=== PATIENT | female | born 1955 | race Caucasian/White ===

== ENCOUNTER 2024-03-31 17:25 | Emergency (ER) | payer MEDICARE ==
[~2024-03-31] VITALS: Ht 172.7 cm; Wt 54.1 kg
[2024-03-31] MEDS: ketorolac trometh 15mg/ml vial 15 MG/ML ML IM ONE (19:43)
[2024-03-31] MEDS: cyclobenzaprine 10mg tablet PO ONE (19:43)
[2024-03-31] MEDS: buprenorphine/naloxone 8MG-2MG SUBlingual film SL SCH (20:09)
[2024-03-31 20:39] LABS: BILIRUBIN,URINE NEGATIVE (Neg); CLARITY,URINE SLIGHTLY CLOUDY (Clear); COLOR,URINE YELLOW (Yellow); GLUCOSE, URINE NEGATIVE (Neg); KETONES,URINE NEGATIVE (Neg); LEUKOCYTE ESTERASE ,URINE MODERATE (Neg); NITRITES, URINE POSITIVE (Neg); OCCULT BLOOD,URINE NEGATIVE (Neg); PH,URINE 6.5 (4.8-8.0); PROTEIN,URINE NEGATIVE (Neg); UROBILINOGEN,URINE 0.2 E.U/dL (0.2-1.0)
[2024-03-31 20:53] LABS: UA COLLECTION TYPE CLN CATCH MIDSTREAM
[2024-03-31 20:55] LABS: BACTERIA,URINE 3+ /HPF (Neg); RBC,URINE 0-2 /HPF (0-2); RENAL CELLS, URINE FEW /HPF; SQUAMOUS EPITHELIAL CELL,UR FEW /LPF (FEW); TRANSITIONAL EPI CELLS,URINE FEW /HPF; WBC,URINE 20-30 /HPF (0-4)
[2024-03-31] MEDS ORDERED: LIDO700A32 TOP (21:21)
[2024-03-31] MEDS ORDERED: CYCL-1 PO (21:21)
[2024-03-31] MEDS ORDERED: CEPH-585 PO (21:21)
[2024-03-31] MEDS: CefTRIAXone 1000mg IM Kit (w/lidocaine diluent) IM ONE (21:39)
[2024-03-31 21:52] VITALS: BP 135/67; PULSE 79; RESP 16; TEMP 97.9; O2SAT 96
== END 2024-03-31 22:08 | disposition home or self-care (01) ==
LOC: ER 17:26
DX: N39.0 Urinary tract infection, site not specified (principal); G89.29 Other chronic pain; M54.50 Low back pain, unspecified
CPT/HCPCS: 81001; 87077; 87088; 87186; 96372; 99284; J0696; J1885

== ENCOUNTER 2024-05-23 09:11 | Emergency (ER) | payer MEDICARE ==
[~2024-05-23] VITALS: Ht 170.2 cm; Wt 78.4 kg
[~2024-05-23 09:11] MED LIST: CYCL-1 PO; LIDO700A32 TOP
[2024-05-23 09:21] VITALS: TEMP 98.2
[2024-05-23] MEDS: buprenorphine/naloxone 8MG-2MG SUBlingual film SL ONE (09:47)
[2024-05-23] MEDS ORDERED: BUPR1FIL3 SL (10:06)
[2024-05-23 10:26] VITALS: BP 128/70; PULSE 58; RESP 18; O2SAT 98
== END 2024-05-23 10:28 | disposition home or self-care (01) ==
LOC: ER 09:11
DX: M54.50 Low back pain, unspecified (principal); Z79.899 Other long term (current) drug therapy
CPT/HCPCS: 99283

== ENCOUNTER 2024-06-10 08:40 | Emergency (ER) | payer MEDICARE, MEDICAID ==
[~2024-06-10] VITALS: Ht 172.7 cm; Wt 56.0 kg
[2024-06-10 08:49] VITALS: BP 132/69; PULSE 64; RESP 16; TEMP 98.3; O2SAT 100
[2024-06-10] MEDS ORDERED: BUPR1FIL7 SL (09:44)
== END 2024-06-10 10:33 | disposition home or self-care (01) ==
LOC: ER 08:41
DX: G89.29 Other chronic pain (principal); M54.59 Other low back pain; Z79.899 Other long term (current) drug therapy
CPT/HCPCS: 99284

== ENCOUNTER 2024-07-17 19:51 | Emergency (ER) | payer MEDICARE, MEDICAID ==
[~2024-07-17] VITALS: Ht 172.7 cm; Wt 56.4 kg
[~2024-07-17 19:51] MED LIST changes: +BUPR1FIL7 SL
[2024-07-17 20:39] VITALS: BP 148/88; PULSE 88; RESP 16; O2SAT 99
[2024-07-17] MEDS ORDERED: LOSA100T58 PO ×2 (20:42→21:29)
[2024-07-17] MEDS ORDERED: ALBU18HF2 PO ×2 (20:42→21:29)
[2024-07-17] MEDS ORDERED: IBUP-1986 PO ×2 (20:42→21:29)
[2024-07-17] MEDS ORDERED: HYDR50CA5 PO (20:42)
[2024-07-17] MEDS ORDERED: LEVO112T5 PO ×2 (20:42→21:29)
[2024-07-17] MEDS ORDERED: ATOR10TA70 PO ×2 (20:42→21:29)
[2024-07-17] MEDS ORDERED: BUPR1FIL SL ×2 (20:42→21:29)
[2024-07-17 21:33] VITALS: TEMP 98.6
== END 2024-07-17 21:36 | disposition home or self-care (01) ==
LOC: ER 19:51
DX: I10 Essential (primary) hypertension (principal); Z76.0 Encounter for issue of repeat prescription; Z79.1 Long term (current) use of non-steroidal anti-inflammatories (NSAID); Z79.899 Other long term (current) drug therapy
CPT/HCPCS: 99281

== ENCOUNTER 2024-10-06 18:14 | Emergency (ER) | payer MEDICARE, MEDICAID, OTHER ==
[~2024-10-06] VITALS: Ht 172.7 cm; Wt 58.2 kg
[~2024-10-06 18:14] MED LIST changes: +ALBU18HF2 PO; +ATOR10TA70 PO; +BUPR1FIL SL; -BUPR1FIL7 SL; -CYCL-1 PO; +HYDR50CA5 PO; +IBUP-1986 PO; +LEVO112T5 PO; -LIDO700A32 TOP; +LOSA100T58 PO
[2024-10-06 18:30] VITALS: BP 144/47; PULSE 67; RESP 18; TEMP 97.8; O2SAT 97
[2024-10-06] MEDS ORDERED: BUPR1FIL7 SL (19:01)
[2024-10-06] MEDS ORDERED: AMLO10TA13 PO ×2 (19:01→20:22)
[2024-10-06] MEDS ORDERED: LIDO700A47 TOP ×2 (19:01→20:22)
[2024-10-06] MEDS ORDERED: LOSA-418 PO ×2 (19:01→20:22)
[2024-10-06] MEDS ORDERED: ONDA-245 PO ×2 (19:01→20:22)
[2024-10-06] MEDS ORDERED: OMEP20TA23 PO ×2 (19:01→20:22)
[2024-10-06] MEDS ORDERED: HYDR50CA5 PO (20:22)
[2024-10-06] MEDS ORDERED: LEVO112T5 PO (20:25)
[2024-10-06] MEDS ORDERED: ALBU18HF2 PO (20:27)
== END 2024-10-06 20:37 | disposition home or self-care (01) ==
LOC: ER 18:15
DX: Z00.00 Encounter for general adult medical examination without abnormal findings (principal); Z76.0 Encounter for issue of repeat prescription
CPT/HCPCS: 99281

== ENCOUNTER 2024-10-25 19:22 | Emergency (ER) | payer MEDICARE, MEDICAID ==
[~2024-10-25] VITALS: Ht 172.7 cm; Wt 57.8 kg
[~2024-10-25 19:22] MED LIST changes: +AMLO10TA13 PO; +BUPR1FIL7 SL; +LIDO700A47 TOP; +LOSA-418 PO; +OMEP20TA23 PO; +ONDA-245 PO
[2024-10-25 19:48] VITALS: BP 119/71; PULSE 95; RESP 18; TEMP 98.3; O2SAT 98
== END 2024-10-25 20:09 | disposition home or self-care (01) ==
LOC: ER 19:23
DX: F11.90 Opioid use, unspecified, uncomplicated (principal); Z76.0 Encounter for issue of repeat prescription; Z79.1 Long term (current) use of non-steroidal anti-inflammatories (NSAID); Z79.899 Other long term (current) drug therapy
CPT/HCPCS: 99281

== ENCOUNTER 2024-11-16 18:32 | Emergency (ER) | payer MEDICARE, MEDICAID ==
[~2024-11-16] VITALS: Ht 177.8 cm; Wt 51.5 kg
[2024-11-16 18:34] VITALS: BP 105/65; PULSE 69; RESP 15; TEMP 97.6; O2SAT 98
[2024-11-16] MEDS ORDERED: PERM59LI8 TOP (19:10)
--- NOTE | 2024-11-16 19:11 | Physician Documentation ---
History of Present Illness General Chief Complaint: Bite-insect Stated Complaint: LICE Time Seen by MD: 18:54 Primary Medical Doctor: NO PMD History of Present Illness Initial Comments 69-year-old female presents to the emergency department with complaints of head lice. Requesting medication treatment. Denies other chief complaints. Medication Reconciliation Allergies: Coded Allergies: No Known Allergies (Unverified , 11/16/24) Scheduled Amlodipine Besylate (Amlodipine Besylate), 1 TAB PO DAILY Atorvastatin Calcium (Atorvastatin Calcium), 1 TAB PO DAILY Buprenorphine HCl/Naloxone HCl (Buprenor-Nalox 12-3 mg Sl Film), 1 STRIP SL DAILY Buprenorphine HCl/Naloxone HCl (Suboxone 12 mg-3 mg Sl Film), 1 STRIP SL DAILY, (Reported) Ibuprofen (Ibuprofen), 1 TAB PO TID Levothyroxine Sodium (Levothyroxine Sodium), 1 TAB PO DAILY Lidocaine (Lidocaine), 1 PATCH TOP DAILY Losartan Potassium (Losartan Potassium), 1 TAB PO DAILY Losartan Potassium (Cozaar), 1 TAB PO DAILY Omeprazole Magnesium (Prilosec Otc), 20 TAB PO DAILY Ondansetron 8mg ODT (Ondansetron Odt), 1 TAB PO Q8H Scheduled PRN Albuterol Sulfate (Ventolin Hfa), 2 PUFFS PO Q4H PRN for cough & congestion Hydroxyzine Pamoate (Hydroxyzine Pamoate), 1 CAP PO TID PRN for anxiety Past Medical History Past Medical History: No Pertinent History Review of Systems All Other Systems at this time: Reviewed and Negative Integ: Reports: itching Integumentary Scalp Physical Exam Physical Exam Vital Signs: RN Vital Signs have been reviewed: Yes, Temperature: 97.6, Source: Temporal, Heart Rate: 69, Respiratory Rate: 15, BP: 105/65, Pulse Oximetry: 98, Weight: 51.500 General Appearance: alert, WD/WN, mild distress Head + Nits, Scalp infestation Pupils/EOM/Fundus: PERRLA Neck: non-tender Respiratory: no respiratory distress Cardiovascular: regular rate, rhythm Psychiatric: normal mood/affect Skin: normal color, other (See above) Progress Results/Orders Results/Orders Completed Orders - NICKOLAS PRESSLEY Permethrin Hair Rinse (Lice Treatment) (11/16/24 18:55) Vital Signs 11/16/24 18:34 Temp 97.6 Pulse 69 Resp 15 B/P (MAP) 105/65 Pulse Ox 98 Medical Decision Making Differential Diagnosis Examination history consistent with scalp parasite infection. We will provide medication for patient and advised to repeat in one week if needed. Discharge safe stable condition. Departure Disposition: HOME / SELF CARE / HOMELESS Impression: Primary Impression: Head lice infestation Condition: Stable Discharge Instructions: Lice, Adult Referrals: NO PRIMARY CARE PROVIDER (PCP) Prescriptions Permethrin (Lice Treatment) 1 % Liquid 1 BOTTLE TOP ONCE for 1 Day, #1 BOTTLE Prov: NICKOLAS PRESSLEY 11/16/24 Education Educated: Patient Educated regarding: diagnosis Signature Scribe Signature: . Attestation: . NICKOLAS PRESSLEY PAC Nov 16, 2024 19:11
[2024-11-16] MEDS: Permethrin 1% 59ml topical rinse TP ONE (19:14)
== END 2024-11-16 19:28 | disposition home or self-care (01) ==
LOC: ER 18:33
DX: B85.0 Pediculosis due to Pediculus humanus capitis (principal)
CPT/HCPCS: 99282